=== PATIENT | male | born 1990 | race African-American/Black ===

== ENCOUNTER 2017-01-21 12:46 | Emergency (ER) | payer OTHER, BC ==
[~2017-01-21] VITALS: Ht 185.4 cm; Wt 77.7 kg
[2017-01-21 13:46] VITALS: BP 147/99
[2017-01-21] MEDS ORDERED: FLEXERIL10 MG PO (14:45)
[2017-01-21] MEDS ORDERED: IBUPROFEN800 MG PO (14:45)
== END 2017-01-21 14:58 | disposition home or self-care (01) ==
LOC: EME 12:46
DX: S16.1XXA Strain of muscle, fascia and tendon at neck level, initial encounter (principal); S39.012A Strain of muscle, fascia and tendon of lower back, initial encounter; V49.40XA Driver injured in collision with unspecified motor vehicles in traffic accident, initial encounter; Y92.411 Interstate highway as the place of occurrence of the external cause
CPT/HCPCS: 99281; 99283